=== PATIENT | female | born 1995 | race American Indian/Alaskan Native ===

== ENCOUNTER 2019-01-11 02:07 | Emergency (ER) | payer MEDICAID ==
[2019-01-11 03:05] LABS: Hematocrit 30.1 % (30.3-42.9); Hemoglobin 10.3 gm/dl (10.1-14.3); Mean Corpuscular HGB Conc 34 % (30-34); Mean Corpuscular Volume 98 fl (79-97); Platelet Count 292 K/mm3 (140-440); Red Blood Count 3.06 M/mm3 (3.65-5.03); Red Cell Distribution Width 16.6 % (13.2-15.2)
[2019-01-11] MEDS ORDERED: NACL 0.9% 1000 ML 1,000 ML IV ONE (03:16)
[2019-01-11] MEDS ORDERED: DILAUDID IV ONE ×3 (03:16→06:06)
[2019-01-11] MEDS ORDERED: ZOFRAN IV ONE (03:21)
[2019-01-11 03:25] LABS: BUN/Creatinine Ratio 8; Blood Urea Nitrogen 3 mg/dL (7-17); Calcium 9.5 mg/dL (8.4-10.2); Hemolysis Index 43
[2019-01-11 04:02] LABS: Total Cells Counted 100
[2019-01-11 04:03] LABS: Anisocytosis 1+; Ovalocytes 1+; Sickle Cells Few
[2019-01-11 04:04] LABS: Tear Drop Cells Rare
[2019-01-11 04:05] LABS: Platelet Estimate Consistent w Auto; Poikilocytosis 1+
[2019-01-11 04:20] LABS: Bilirubin,Urine NEG (Negative); Blood,Urine NEG (Negative); Color,Urine Yellow (Yellow); HCG Qualitative,Urine Negative (Negative); Hyaline Casts,Urine 1 /LPF; Mucus,Urine 1+ /HPF; Protein,Urine <15 mg/dL mg/dL (Negative); Urobilinogen,Urine < 2.0 mg/dL (<2.0)
[2019-01-11] MEDS ORDERED: BENADRYL IV ONE (04:46)
--- NOTE | 2019-01-11 05:37 | Emergency Department Report ---
HPI <ESPINOZA YO III - Last Filed: 01/11/19 08:55> - HPI HPI: 23-year-old -[place] female presents to the emergency department with a complaint of a 2 to three-day history of some low back pain and bilateral leg pain that she says is a typical sickle cell pain crisis for her. She is on fol ic acid, hydroxyurea, and has been taking Percocet for her symptoms without any relief. She denies any history of PE, DVT. She does complain of some swelling to the right leg. She is visiting [place] from [facility], about 3 hours away. She follows with a paper sealer there, Dr. Ambrose. She denies any fever, chest pain, back pain, shortness of breath. <FELI ABREU - Last Filed: 01/11/19 20:03> - General Chief Complaint: Sickle Cell Crisis Time Seen by Provider: 01/11/19 04:02 ED Past Medical Hx <ESPINOZA YO III - Last Filed: 01/11/19 08:55> - Past Medical History Previous Medical History?: Yes Hx Sickle Cell Disease: Yes - Surgical History Past Surgical History?: No Hx Cholecystectomy: Yes Hx Appendectomy: No - Social History Smoking Status: Never Smoker Substance Use Type: None <FELI ABREU - Last Filed: 01/11/19 20:03> - Medications Home Medications: Home Medications Medication Instructions Recorded Confirmed Last Taken Type HYDROcodone/APAP 5-325 [Hooper 1 each PO Q6HR PRN #10 tablet 01/11/19 Unknown Rx 5/325] ED Review of Systems ROS: Stated complaint: SICKLE CELL CRISIS Other details as noted in HPI <ESPINOZA YO III - Last Filed: 01/11/19 08:55> ROS: Stated complaint: SICKLE CELL CRISIS Other details as noted in HPI Comment: All other systems reviewed and negative Constitutional: denies: chills, fever Eyes: denies: eye pain, vision change ENT: denies: ear pain, throat pain Respiratory: denies: cough, shortness of breath Cardiovascular: edema (RLE). denies: chest pain Gastrointestinal: denies: abdominal pain, vomiting Genitourinary: denies: dysuria, discharge Musculoskeletal: back pain, myalgia Skin: denies: rash, lesions Neurological: denies: headache, weakness <FELI ABREU S - Last Filed: 01/11/19 20:03> Physical Exam - Physical Exam Vital Signs: Vital Signs 01/11/19 01/11/19 01/11/19 02:12 03:09 03:39 Temperature 98.7 F Pulse Rate 87 79 74 Respiratory 18 17 16 Rate Blood Pressure 124/81 Blood Pressure 119/82 113/70 [Right] O2 Sat by Pulse 100 99 98 Oximetry 01/11/19 01/11/19 01/11/19 06:35 07:07 08:48 Temperature 98.5 F Pulse Rate 79 73 Respiratory 15 16 16 Rate Blood Pressure Blood Pressure 99/59 127/61 97/66 [Right] O2 Sat by Pulse 99 100 98 Oximetry <ESPINOZA YO III K - Last Filed: 01/11/19 08:55> - Physical Exam Vital Signs: Vital Signs 01/11/19 01/11/19 01/11/19 02:12 03:09 03:39 Temperature 98.7 F Pulse Rate 87 79 74 Respiratory 18 17 16 Rate Blood Pressure 124/81 Blood Pressure 119/82 113/70 [Right] O2 Sat by Pulse 100 99 98 Oximetry Physical Exam: GENERAL: The patient is well-developed well-nourished. HENT: Normocephalic. Atraumatic. Patient has moist mucous membranes. EYES: Extraocular motions are intact. NECK: Supple. Trachea is midline. CHEST/LUNGS: Clear to auscultation. There is no respiratory distress noted. HEART/CARDIOVASCULAR: Regular. There is no tachycardia. There is no murmur. ABDOMEN: Abdomen is soft, nontender. Patient has normal bowel sounds. There is no abdominal distention. SKIN: Skin is warm and dry. There is some nonpitting swelling of the distal right lower extremity when compared to the left. No erythema, rash or lesions, bleeding or discharge. NEURO: The patient is awake, alert, and oriented. The patient is cooperative. The patient has no focal neurologic deficits. The patient has normal speech. MUSCULOSKELETAL: There is some reproducible tenderness to palpation along the bilateral distal lower extremities, with right greater than left. There is no limitation range of motion. Muscle strength 5 out of 5 upper and lower extremities bilaterally. BACK: There is both midline and bilateral paraspinal lumbar tenderness to palpation but no step-off or deformity. <FELI ABREU S - Last Filed: 01/11/19 20:03> ED Course Vital Signs 01/11/19 01/11/19 01/11/19 02:12 03:09 03:39 Temperature 98.7 F Pulse Rate 87 79 74 Respiratory 18 17 16 Rate Blood Pressure 124/81 Blood Pressure 119/82 113/70 [Right] O2 Sat by Pulse 100 99 98 Oximetry 01/11/19 01/11/19 01/11/19 06:35 07:07 08:48 Temperature 98.5 F Pulse Rate 79 73 Respiratory 15 16 16 Rate Blood Pressure Blood Pressure 99/59 127/61 97/66 [Right] O2 Sat by Pulse 99 100 98 Oximetry - Reevaluation(s) Reevaluation #1: Patient's only pending test was in ultrasound and the ultrasound is negative for DVT. I will activate the patient's discharge that was set up by Dr. Hernandez. Discussed all results with patient. Patient is stable for discharge. Patient will be discharged home.. Patient agrees to plan of care.. Patient given discharge instructions. Patient voiced understanding of discharge instructions. 01/11/19 08:56 <ESPINOZA YO III - Last Filed: 01/11/19 08:55> Vital Signs 01/11/19 01/11/19 01/11/19 02:12 03:09 03:39 Temperature 98.7 F Pulse Rate 87 79 74 Respiratory 18 17 16 Rate Blood Pressure 124/81 Blood Pressure 119/82 113/70 [Right] O2 Sat by Pulse 100 99 98 Oximetry <FELI ABREU S - Last Filed: 01/11/19 20:03> ED Medical Decision Making - Lab Data Result diagrams: 01/11/19 02:35 01/11/19 02:35 - Radiology Data PROCEDURE: VL VENOUS DUPLEX LE BILAT TECHNIQUE: Grayscale, color and spectral Doppler ultrasound evaluation is performed of the both lower extremity deep veins with compression and augmentation HISTORY: B/L LE pain and swelling COMPARISONS: None FINDINGS: The deep veins in the right lower extremity demonstrate normal compression, color Doppler appearance and spectral Doppler waveforms. Normal respiratory variation and response to augmentation (where performed.) The deep veins in the left lower extremity demonstrate normal compression, color Doppler appearance and spectral Doppler waveforms. Normal respiratory variation and response to augmentation (where performed.) IMPRESSION: No sonographic evidence of DVT in the imaged portions of the right and left lower extremities. <ESPINOZA YO III - Last Filed: 01/11/19 08:55> - Lab Data Result diagrams: 01/11/19 02:35 01/11/19 02:35 - Medical Decision Making This patient presents to the emergency department with low back pain and bilateral leg pain consistent with her normal sickle cell pain crisis. The right leg is slightly swollen when compared to the left. Patient has a leukocytosis of 23,000 but she is afebrile and there are no sources of infection seen. She has no cough, rash, diarrhea, abdominal pain and her urinalysis did not show any signs of urinary tract infection. The patient is not . She has a reticulocyte count of about 11. No significant abnormalities and her electrolytes or metabolic panel. The patient was given some IV fluid resu scitation and pain medication with some improvement in her symptoms. She had a negative bilateral lower extremity venous Doppler ultrasound for DVT. The patient will be discharged home with a small amount of pain medication until she is able to follow up with her paper sealer in [place]. Vital signs stable throughout her ED course. - Differential Diagnosis sickle cell pain crisis, DVT, cellulitis <FELI ABREU - Last Filed: 01/11/19 20:03> Critical care attestation.: If time is entered above; I have spent that time in minutes in the direct care of this critically ill patient, excluding procedure time. <ESPINOZA YO III - Last Filed: 01/11/19 08:55> Critical Care Time: No Critical care attestation.: If time is entered above; I have spent that time in minutes in the direct care of this critically ill patient, excluding procedure time. <FELI ABREU - Last Filed: 01/11/19 20:03> ED Disposition Time of Disposition: 08:57 <ESPINOZA YO III - Last Filed: 01/11/19 08:55> Is pt being admited?: No <FELI ABREU - Last Filed: 01/11/19 20:03> Clinical Impression: Sickle cell pain crisis, Bilateral leg pain Sickle cell anemia Qualifiers: Sickle-cell associated disorders: with unspecified crisis Qualified Code(s): D57.00 - Hb-SS disease with crisis, unspecified Back pain Qualifiers: Back pain location: low back pain Chronicity: unspecified Back pain laterality: bilateral Sciatica presence: without sciatica Qualified Code(s): M54.5 - Low back pain Disposition: TO HOME OR SELFCARE Condition: Stable Instructions: Sickle Cell Crisis (ED), Arthralgia (ED), Back Pain (ED) Additional Instructions: Please follow-up with your primary care physician and paper sealer as soon as you return to [place]. Return to the emergency Department with any worsening of your symptoms or any acute distress. You have been prescribed a medication that is sedating and therefore should not be taken prior to driving, working, and responsible for children and in no way should be mixed with alcohol of any quantity. Prescriptions: HYDROcodone/APAP 5-325 [Hooper 5/325] 1 each PO Q6HR PRN #10 tablet PRN Reason: Pain Referrals: Pharmacist In Charge Owner and PCP, Your [Other] - RAVI
[2019-01-11 08:48] VITALS: BP 97/66
--- NOTE | 2019-01-11 08:48 | Vascular Lab Report ---
PROCEDURE: VL VENOUS DUPLEX LE BILAT TECHNIQUE: Grayscale, color and spectral Doppler ultrasound evaluation is performed of the both lowe r extremity deep veins with compression and augmentation HISTORY: B/L LE pain and swelling COMPARISONS: None FINDINGS: The deep veins in the right lower extremity demonstrate normal compression, color Doppler appearance and spectral Doppler waveforms. Normal respiratory variation and response to augmentation (where perf ormed.) The deep veins in the left lower extremity demonstrate normal compression, color Doppler appearance a nd spectral Doppler waveforms. Normal respiratory variation and response to augmentation (where perfo rmed.) IMPRESSION: No sonographic evidence of DVT in the imaged portions of the right and left lower extremities. This document is electronically signed by Butch Bhatia MD., January 11 2019 08:46:15 AM ET
== END 2019-01-11 09:00 | disposition home or self-care (01) ==
LOC: ED 02:07
DX: D57.00 Hb-SS disease with crisis, unspecified (principal); M54.5 Low back pain; Z90.49 Acquired absence of other specified parts of digestive tract
CPT/HCPCS: 36415; 80048; 81001; 81025; 85007; 85025; 85045; 93970; 96374; 96375; 96376; 99284; J1170; J1200; J2405; J7030